=== PATIENT | male | born 1970 | race Caucasian/White ===

== ENCOUNTER → 2017-11-15 | Outpatient (REF) | payer BC | LOC: M SFHCLERA 11:19 | DX: J02.9 Acute pharyngitis, unspecified (principal) ==

== ENCOUNTER → 2019-01-18 | Outpatient (CLI) | payer BC ==
--- NOTE | 2019-01-18 10:50 | REP ---
Left knee five views: There is a nondisplaced fracture in the lateral tibial plateau. No evidence of hemarthrosis. Mineralization is normal. There are no calcifications or foreign bodies. Impression: Nondisplaced lateral tibial plateau fracture. Electronically Signed by Wilbert Villagomez MD 01/18/2019 10:42 A
== END ==
LOC: M LRY 10:00
PROVIDERS: ATTEND Physician Assistant
DX: S82.145A Nondisplaced bicondylar fracture of left tibia, initial encounter for closed fracture (principal); X58.XXXA Exposure to other specified factors, initial encounter; Y92.89 Other specified places as the place of occurrence of the external cause